=== PATIENT | female | born 1950 | race Caucasian/White ===

== ENCOUNTER → 2016-11-15 | Day surgery (SDC) | payer MEDICARE ==
[2016-10-01 09:57] VITALS: BMI 27.3
[~2016-11-15] MED LIST: DEXAMETHASONE SOD PHOSPHATE 10 MG/ML 1 ML VIAL IV ONE; HEPARIN SODIUM,PORCINE 5,000 UNIT/ML 1 ML VIAL SQ ONE; HYDROmorphone 1 MG/ML 1 ML SYRINGE IVP PRN; LACTATED RINGERS 1,000 ML IV SCH; LIDOCAINE 1% 20 ML VIAL (10MG/ML) FOR IV START INTRADERMA ONE; MIDAZOLAM 2 MG/2 ML VIAL IV PRN; ONDANSETRON 4 MG/2 ML VIAL IVP ONE; PROPOFOL 10 MG/ML 20 ML VIAL IV ONE; Pre Op ABX Message 1 EACH MISC MISCELLANE ONE; SCOPOLAMINE 1.5MG/72HR PATCH TRANSDERM ONE
[2016-11-15 11:56] VITALS: RESP 16; TEMP 97.7
--- NOTE | 2016-11-15 12:19 | P.GSHP ---
History of Present Illness H&P Date: 11/15/16 Chief Complaint: Rectal bleeding 65yr old female presents with rectal bleeding - bright red ,intermittent in nature. Some perianal pain, itching and discomfort. No prior colonoscopy. No family history of colon cancer. Symptomatic improvement since last visit . - Review of Systems Comment: Constitutional: No fever, chills or rigors. No weight loss or loss of appetite. HEENT: No difficulty with hearing, vision and swallowing. Lymphatic: No axillary, inguinal and cervical swellings. Endocrine: No thyroid disorders. Denies history of diabetes. Respiratory: No chest pain, shortness of breath, and cough. No hemoptysis. Cardiovascular: No palpitations, irregular HR Gastrointestinal: Denies heartburn. No change in bowel habits. No nausea or vomiting. Genitourinary: No increase in urinary frequency or urgency. No hematuria. Musculoskeletal: No back pain, joint stiffness or pain. Neurologic: No history of seizure disorder and headaches. Psychiatric: Denies depression or anxiety . No suicidal ideation. Hematologic: Denies any abnormal mucosal bleeding or easy bruising. Past Medical History Past Medical History: Hyperlipidemia Additional Past Medical History / Comment(s): hemorrhoids History of Any Multi-Drug Resistant Organisms: None Reported Past Surgical History: Breast Surgery, Hysterectomy Additional Past Surgical History / Comment(s): breast biopsies Past Anesthesia/Blood Transfusion Reactions: No Reported Reaction Additional Past Anesthesia/Blood Transfusion Reaction / Comment(s): no complications with prior blood transfusion. Past Psychological History: No Psychological Hx Reported Smoking Status: Never smoker Past Alcohol Use History: Occasional Past Drug Use History: None Reported - Past Family History Brother(s) Family Medical History: Cancer Additional Family Medical History / Comment(s): brothers x 4 Mother Family Medical History: CVA/TIA Father Family Medical History: No Reported History Medications and Allergies Home Medications Medication Instructions Recorded Confirmed Type Multivitamins, Thera [Multivitamin] 1 tab PO DAILY 10/01/16 11/15/16 History Simvastatin [Zocor] 20 mg PO PC-SUPPER 10/01/16 11/15/16 History Aspirin 81 mg PO DAILY 11/13/16 11/15/16 History Allergies Allergy/AdvReac Type Severity Reaction Status Date / Time adhesive tape AdvReac andrade skin Verified 11/15/16 11:53 Surgical - Exam Vital Signs Temp Pulse Resp BP Pulse Ox 97.7 F 69 16 157/82 98 11/15/16 11:55 11/15/16 11:55 11/15/16 11:55 11/15/16 11:55 11/15/16 11:55 Patient is a 65-year-old female. General: The patient is alert and oriented to time, place and person. The patient is cooperative with the exam. The patient is not in any distress. HEENT: No icterus. No pallor. No thyroid enlargement. Abdomen: Soft, nontender. Nondistended. No peritoneal signs. No evidence of hernias. Musculoskeletal: Strength of upper and lower extremities 5/5. Assessment and Plan (1) Screen for colon cancer Status: Acute Plan: 1. Colonoscopy with possible biopsy 2. Informed consent obtained from the patient after explaining the risks, benefits and potential complications of colonoscopy including bleeding and perforation 3. Patient demonstrated understanding of the procedure and agreed to undergo colonoscopy with possible biopsy/polypectomy 4. Patient reports complete resolution of hemorrhoids and hence EUA and open hemorrhoidectomy cancelled
--- NOTE | 2016-11-15 13:06 | P.OP ---
Date of Procedure: 11/15/16 Preoperative Diagnosis: Screening colonoscopy Postoperative Diagnosis: Incomplete colonoscopy. Procedure(s) Performed: Flexible sigmoidoscopy Anesthesia: MAC Surgeon: Patti Oconnor Pathology: none sent Condition: stable Disposition: PACU Indications for Procedure: 65 years old female presents for first screening colonoscopy. No prior history of colonoscopy. No family history of colon cancer. Informed consent obtained and patient elected to undergo the procedure. Operative Findings: Sigmoid diverticulosis. The scope could not be advanced beyond 40 cm. Description of Procedure: The patient was brought to the endoscopy suite and placed in lateral decubitus position. IV sedation was given as per anesthesia team. Patient was on continuous vitals and pulse oximetry monitoring throughout the procedure. A timeout was performed to verify correct patient and correct procedure. Perianal examination did not show any external hemorrhoids. Digital rectal examination was performed. No masses or gross blood. A well-lubricated Olympus colonoscope was passed per rectally and was gradually advanced upto sigmoid colon at 40 cm from anal verge. Extensive sigmoid diverticulosis noted. The scope could not be advanced beyond 40 cm. No definite mass seen. Patient was positioned in supine and repeat scope was attempted. No biopsies taken A decision was then made to abort the procedure. Proceed with barium enema. BARIUM ENEMA: Uncomplicated left sided diverticulosis
[2016-11-15 14:31] VITALS: BP 117/64; PULSE 62
--- NOTE | 2016-11-15 16:47 | FL ---
EXAMINATION TYPE: FL barium enema DATE OF EXAM ORDERED: 11/15/2016 4:31 PM HISTORY: Failed colonoscopy. COMPARISON: None. FINDINGS: Air and barium introduced into the rectum and flowed freely from the rectum to the cecum r efluxing into a normal-appearing appendix. There is diverticular change involving the sigmoid colon with scattered diverticula elsewhere through out the left side of the colon. There is no evidence of obstructing or constricting disease. The muco sharifa pattern throughout the colon is unremarkable. No fixed filling defects are seen. IMPRESSION: UNCOMPLICATED DIVERTICULOSIS OF THE LEFT SIDE OF THE COLON.
== END | disposition home or self-care (01) ==
LOC: OR 11:15
PROVIDERS: ATTEND Surgery
DX: K62.5 Hemorrhage of anus and rectum (principal); K57.30 Diverticulosis of large intestine without perforation or abscess without bleeding; E78.5 Hyperlipidemia, unspecified; Z79.82 Long term (current) use of aspirin; Z79.899 Other long term (current) drug therapy; Z53.8 Procedure and treatment not carried out for other reasons
CPT/HCPCS: 45330; 74270; J2704; 45380; 99153

== ENCOUNTER 2022-10-29 09:14 | Day surgery (SDC) | payer MEDICARE ==
[2022-10-24 14:09] VITALS: BMI 28.1
[~2022-10-29 09:14] MED LIST changes: -DEXAMETHASONE SOD PHOSPHATE 10 MG/ML 1 ML VIAL IV ONE; +DEXAMETHASONE SOD PHOSPHATE 4 MG/ML 1 ML VIAL IV ONE; -HEPARIN SODIUM,PORCINE 5,000 UNIT/ML 1 ML VIAL SQ ONE; +HYDROmorphone 0.5 MG/0.5 ML SYRINGE IVP PRN; -HYDROmorphone 1 MG/ML 1 ML SYRINGE IVP PRN; -LIDOCAINE 1% 20 ML VIAL (10MG/ML) FOR IV START INTRADERMA ONE; -MIDAZOLAM 2 MG/2 ML VIAL IV PRN; -PROPOFOL 10 MG/ML 20 ML VIAL IV ONE; -Pre Op ABX Message 1 EACH MISC MISCELLANE ONE; -SCOPOLAMINE 1.5MG/72HR PATCH TRANSDERM ONE
[2022-10-29 09:50] VITALS: TEMP 97.3
[2022-10-29] MEDS ORDERED: PROPOFOL 10 MG/ML 20 ML VIAL IV ONE (10:07)
[2022-10-29] MEDS ORDERED: LIDOCAINE 2% INJ 20 MG/ML (2 ML VIAL) ONE (10:07)
--- NOTE | 2022-10-29 10:28 | P.PCN ---
Date of Procedure: 10/29/22 Procedure(s) Performed: BRIEF HISTORY: Patient is a 71-year-old [place] female scheduled for an elective colonoscopy as a part of screening for colon cancer and family history of colon cancer. Her mother was diagnosed with colon cancer at age 50. PROCEDURE PERFORMED: Colonoscopy. PREOPERATIVE DIAGNOSIS: Screening for colon cancer and family history of colon cancer. IV sedation per Anesthesia. PROCEDURE: After informed consent was obtained, the patient, was brought into the endoscopy unit. IV sedation was administered by Anesthesia under continuous monitoring. Digital rectal examination was normal. Initially the Olympus CF-160 flexible video colonoscope was then inserted in the rectum, gradually advanced into the cecum without any difficulty. Careful examination was performed as the scope was gradually being withdrawn. Ileocecal valve and the appendiceal orifice were visualized and appeared normal. Prep was excellent. Mucosa of the cecum, ascending colon, transverse colon, descending colon, sigmoid colon, and rectum appeared normal. Scattered sigmoidal diverticulosis Retroflexion was performed in the rectum and no lesions were seen. The patient tolerated the procedure well. IMPRESSION: Normal-appearing colon from rectum to cecum with no evidence of colorectal neoplasia . Scattered sigmoid diverticulosis. RECOMMENDATIONS: Findings of this examination were discussed with the patient as well as a family. She was advised to have a repeat screening colonoscopy in 5 years because of the strong family history of colon cancer.
[2022-10-29 10:34] VITALS: RESP 16
[2022-10-29 10:42] VITALS: BP 120/75; PULSE 63
== END 2022-10-29 11:10 | disposition home or self-care (01) ==
LOC: ORWHC2ENDO 09:14
PROVIDERS: ATTEND Internal Medicine Gastroenterology
DX: Z12.11 Encounter for screening for malignant neoplasm of colon (principal); E78.5 Hyperlipidemia, unspecified; K57.30 Diverticulosis of large intestine without perforation or abscess without bleeding; Z80.0 Family history of malignant neoplasm of digestive organs; Z88.5 Allergy status to narcotic agent; Z91.048 Other nonmedicinal substance allergy status; Z79.82 Long term (current) use of aspirin; Z79.899 Other long term (current) drug therapy
CPT/HCPCS: J2704; J2001; G0105; 45378